=== PATIENT | female | born 1945 | race Caucasian/White ===

== ENCOUNTER → 2016-11-04 | Day surgery (SDC) | payer MEDICARE, BC | LOC: RAD 12:49 | PROVIDERS: ATTEND Orthopaedic Surgery | PROC: BP08ZZZ Plain Radiography of Right Shoulder (ICD-10-PCS; principal; 2016-11-04) | DX: M25.511 Pain in right shoulder (principal) | CPT/HCPCS: 73222; 73040; 77002; A9576 ==

== ENCOUNTER → 2016-11-25 | Outpatient (CLI) | payer MEDICARE, BC ==
[2016-11-25 13:29] LABS: ABSOLUTE EOSINOPHILS # (AUTO) 0.2 10^3/uL (0.0-0.6); ABSOLUTE LYMPHOCYTES (AUTO) 1.9 10^3/uL (0.5-4.7); ABSOLUTE MONOCYTES (AUTO) 0.5 10^3/uL (0.1-1.4); BASOPHILS % (AUTO) 0.9 % (0-2); EOSINOPHILS % (AUTO) 4.8 % (0-6); HEMATOCRIT 41.6 % (36.0-47.0); HEMOGLOBIN 13.6 g/dL (12.0-15.5); HGB HCT DIFFERENCE -0.8; LYMPHOCYTES % (AUTO) 41.1 % (13-45); MEAN CORPUSCULAR HEMOGLOBIN 26.6 pg (27.0-33.4); MEAN CORPUSCULAR HGB CONC 32.6 g/dL (32.0-36.0); MEAN CORPUSCULAR VOLUME 82 fl (80-97); MONOCYTES % (AUTO) 10.1 % (3-13); RED CELL DISTRIBUTION WIDTH 14.4 % (11.5-14.0); SEGMENTED NEUTROPHILS % (AUTO) 43.1 % (42-78); WHITE BLOOD COUNT 4.7 10^3/uL (4.0-10.5)
[2016-11-25 13:50] LABS: ALANINE AMINOTRANSFERASE 33 U/L (9-52); ALKALINE PHOSPHATASE 83 U/L (38-126); ANION GAP 9 (5-19); ASPARTATE AMINO TRANSFERASE 31 U/L (14-36); BILIRUBIN,TOTAL 0.7 mg/dL (0.2-1.3); BLOOD UREA NITROGEN 26 mg/dL (7-20); CALCIUM 10.5 mg/dL (8.4-10.2); CARBON DIOXIDE 29 mmol/L (22-30); CHLORIDE 106 mmol/L (98-107); GLUCOSE 93 mg/dL (75-110); POTASSIUM 4.9 mmol/L (3.6-5.0)
== END ==
LOC: OD 12:37
PROVIDERS: ATTEND Physician Assistant
DX: Z01.810 Encounter for preprocedural cardiovascular examination (principal); Z11.2 Encounter for screening for other bacterial diseases
CPT/HCPCS: 36415; 80053; 85025

== ENCOUNTER 2017-12-10 09:52 | Day surgery (SDC) | payer MEDICARE, BC ==
[~2017-12-10 09:52] MED LIST: KETOROLAC TROMETHAMINE 0.45% 4 DROP/0.4 ML DROPERETTE OS PRN
[2017-12-10] MEDS ORDERED: CHONDR SU A NA/HYALUR INTRAOC KIT (SURGICARE) ONE (10:00)
[2017-12-10] MEDS ORDERED: EPINEPHRINE INJ/PF 1 MG/1 ML AMPULE ONE (10:00)
[2017-12-10] MEDS ORDERED: LIDOCAINE 1% INJ-PF (10 MG/ML) 30 ML SDV ONE (10:00)
[2017-12-10] MEDS: TROPICAMIDE 1% OPH SOLN 3 ML OS PRN ×3 (10:26→10:48)
[2017-12-10] MEDS: CYCLOPENTOLATE 0.2%/PHENYLEPHRINE 1% OPH SOLN 2 ML OS PRN ×3 (10:26→10:48)
[2017-12-10] MEDS: BESIFLOXACIN HCL 0.6% OPH SUSP 5 ML BOTTLE OS PRN ×3 (10:27→11:30)
[2017-12-10] MEDS: TETRACAINE HCL 0.5% OPH SOLN 2 ML OS PRN ×3 (10:28→11:06)
[2017-12-10] MEDS ORDERED: MIDAZOLAM 2 MG/2 ML INJ ONE ×2 (10:59→11:00)
[2017-12-10] MEDS ORDERED: FENTANYL CITRATE INJ/PF 100 MCG/2 ML AMPUL ONE (11:00)
--- NOTE | 2017-12-10 22:04 | [facility] DISCHARGE SUMMARY E ---
[facility] Discharge Summary NAME: CHRISTIE AGUAYO AGE: 72Y ADMITTED: 12/10/2017 DISCHARGED: 12/10/2017 HOSPITAL COURSE: This is a 72-year-old female who underwent cataract extraction of the left eye. DIAGNOSIS: CATARACT, LEFT EYE. She underwent surgery because she was having difficulty with glare at night cause her difficulty for driving. DISCHARGE INSTRUCTIONS: She should be on a regular diet. No bending at her waist, no heavy lifting. She should use Besivance, Ilevro, and Durezol at 3 p.m. and 8 p.m. and sleep with a rigid shield. I will see her for her 1 day postoperative tomorrow. DICTATING PHYSICIAN: ISHMAEL LOPEZ M.D. [id number] Y#: [id number] ID: [id number] JOB#: [id number] ACCT: [id number] cc:ISHMAEL LOPEZ M.D. >
--- NOTE | 2017-12-10 22:04 | [facility] OPERATIVE REPORT E ---
[facility] Operative Report NAME: CHRISTIE AGUAYO AGE: 72Y DATE OF SURGERY: 12/10/2017 ROOM: PREOPERATIVE DIAGNOSIS: CATARACT, LEFT EYE. POSTOPERATIVE DIAGNOSIS: CATARACT, LEFT EYE. OPERATION: Cataract extraction with intraocular lens implant of the left eye. SURGEON: ISHMAEL LOPEZ M.D. ANESTHESIA: Topical. PROCEDURE: After obtaining appropriate consent, the patient's left eye was prepped and draped in sterile fashion as well as the surgeon in a sterile manner and cataract surgery was started. First a paracentesis blade was used to make a small side-port incision. Viscoelastic was used to inflate the anterior chamber. Next a 2.4 mm incision was made with the paracentesis blade. A continuous capsulorrhexis incision was made using a cystotome and Utrata forceps. Following this hydrodissection was carried out to make the lens fully loose and mobile and it was rotated 90 degrees. Following this, a poovii-nsm-lprqvcn technique was used to phacoemulsify the lens with a CDE of 8.10. The remaining cortex was removed with irrigation/aspiration. Provisc was instilled into the capsular bag to inflate the bag. A SN60WF, 17.0 diopter lens was placed. The remaining viscoelastic material was removed with irrigation/aspiration. Following this, a 10-0 nylon suture was used to close the incision and it was found to be watertight. Vigamox was instilled in the eye and a protective shield was placed over the eye. The patient returned to the postoperative recovery in stable condition. DICTATING PHYSICIAN: ISHMAEL LOPEZ M.D. [id number] [id number] PHY#: [id number] ID: [id number] JOB#: [id number] ACCT: [id number] cc:ISHMAEL LOPEZ M.D. >
== END 2017-12-10 12:24 | disposition home or self-care (01) ==
LOC: SC 09:52
PROVIDERS: ATTEND Internal Medicine
PROC: 08RK3JZ Replacement of Left Lens with Synthetic Substitute, Percutaneous Approach (ICD-10-PCS; principal; 2017-12-10 11:30)
DX: H25.812 Combined forms of age-related cataract, left eye (principal); I10 Essential (primary) hypertension; M32.9 Systemic lupus erythematosus, unspecified; Z87.891 Personal history of nicotine dependence; Z79.899 Other long term (current) drug therapy; Z79.82 Long term (current) use of aspirin
CPT/HCPCS: 66984; V2632; J2250; J3490 ×2; A9270; J0171; J3010; 142

== ENCOUNTER 2017-12-31 06:54 | Day surgery (SDC) | payer MEDICARE, BC ==
[~2017-12-31 06:54] MED LIST changes: +KETOROLAC TROMETHAMINE 0.45% 4 DROP/0.4 ML DROPERETTE OD PRN; -KETOROLAC TROMETHAMINE 0.45% 4 DROP/0.4 ML DROPERETTE OS PRN
[2017-12-31] MEDS ORDERED: KETOROLAC TROMETHAMINE 0.45% 4 DROP/0.4 ML DROPERETTE ONE (06:59)
[2017-12-31] MEDS ORDERED: TETRACAINE HCL 0.5% OPH SOLN 2 ML ONE (07:00)
[2017-12-31] MEDS: CYCLOPENTOLATE 0.2%/PHENYLEPHRINE 1% OPH SOLN 2 ML OD PRN ×3 (07:04→07:36)
[2017-12-31] MEDS: TROPICAMIDE 1% OPH SOLN 3 ML OD PRN ×3 (07:04→07:36)
[2017-12-31] MEDS: BESIFLOXACIN HCL 0.6% OPH SUSP 5 ML BOTTLE OD PRN ×3 (07:05→08:16)
[2017-12-31] MEDS: TETRACAINE HCL 0.5% OPH SOLN 2 ML OD PRN ×2 (07:06→07:41)
[2017-12-31] MEDS ORDERED: EPINEPHRINE INJ/PF 1 MG/1 ML AMPULE ONE (07:13)
[2017-12-31] MEDS ORDERED: CHONDR SU A NA/HYALUR INTRAOC KIT (SURGICARE) ONE (07:13)
[2017-12-31] MEDS ORDERED: LIDOCAINE 1% INJ-PF (10 MG/ML) 30 ML SDV ONE (07:13)
[2017-12-31] MEDS ORDERED: FENTANYL CITRATE INJ/PF 100 MCG/2 ML AMPUL ONE (07:21)
[2017-12-31] MEDS ORDERED: MIDAZOLAM 2 MG/2 ML INJ ONE (07:21)
[2017-12-31] MEDS ORDERED: TETRACAINE HCL 0.5% OPH SOLN 2 ML OD PRN (07:30)
[2017-12-31] MEDS ORDERED: KETOROLAC TROMETHAMINE 0.45% 4 DROP/0.4 ML DROPERETTE OD PRN (07:30)
[2017-12-31] MEDS ORDERED: CYCLOPENTOLATE 0.2%/PHENYLEPHRINE 1% OPH SOLN 2 ML OD PRN (07:30)
[2017-12-31] MEDS ORDERED: BESIFLOXACIN HCL 0.6% OPH SUSP 5 ML BOTTLE OD PRN (07:30)
[2017-12-31] MEDS ORDERED: TROPICAMIDE 1% OPH SOLN 3 ML OD PRN (07:30)
--- NOTE | 2017-12-31 19:15 | [facility] DISCHARGE SUMMARY E ---
[facility] Discharge Summary NAME: CHRISTIE AGUAYO AGE: 72Y ADMITTED: 12/31/2017 DISCHARGED: FINAL DIAGNOSIS: Cataract, right eye. HOSPITAL COURSE: This is a 72-year-old female who underwent cataract extraction of the right eye. She underwent surgery because she was having trouble seeing road signs and people's faces. She should be on a regular diet. No bending at her waist, no heavy lifting. She should use Besivance, Ilevro and Durezol at 3:00 p.m. and 8:00 p.m. Sleep with a rigid shield. I will see her for a 1-day postoperative tomorrow. DICTATING PHYSICIAN: ISHMAEL LOPEZ M.D. [id number] PHY#: [id number] ID: [id number] JOB#: [id number] ACCT: [id number] cc:ISHMAEL LOPEZ M.D. >
--- NOTE | 2017-12-31 19:15 | [facility] OPERATIVE REPORT E ---
[facility] Operative Report NAME: CHRISTIE AGUAYO AGE: 72Y DATE OF SURGERY: 12/31/2017 ROOM: PREOPERATIVE DIAGNOSIS: CATARACT, RIGHT EYE. POSTOPERATIVE DIAGNOSIS: CATARACT, RIGHT EYE. OPERATION: Cataract extraction with intraocular lens implant of the right eye. SURGEON: ISHMAEL LOPEZ M.D. ANESTHESIA: Topical. PROCEDURE: After obtaining appropriate consent, the patient's right eye was prepped and draped in sterile fashion as well as the surgeon in a sterile manner and cataract surgery was started. First a paracentesis blade was used to make a small side-port incision. Viscoelastic was used to inflate the anterior chamber. Next a 2.4 mm incision was made with the paracentesis blade. A continuous capsulorrhexis incision was made using a cystotome and Utrata forceps. Following this hydrodissection was carried out to make the lens fully loose and mobile and it was rotated 90 degrees. Following this, a fetqsc-qxy-mczcpbt technique was used to phacoemulsify the lens with a CDE of 6.45. The remaining cortex was removed with irrigation/aspiration. Provisc was instilled into the capsular bag to inflate the bag. A SN60WF, 16.0 diopter lens was placed. The remaining viscoelastic material was removed with irrigation/aspiration. Following this, a 10-0 nylon suture was used to close the incision and it was found to be watertight. Vigamox was instilled in the eye and a protective shield was placed over the eye. The patient returned to the postoperative recovery in stable condition. DICTATING PHYSICIAN: ISHMAEL LOPEZ M.D. [id number] PHY#: [id number] ID: [id number] JOB#: [id number] ACCT: [id number] cc:ISHMAEL LOPEZ M.D. >
== END 2017-12-31 09:04 | disposition home or self-care (01) ==
LOC: SC 06:54
PROVIDERS: ATTEND Internal Medicine
PROC: 08RJ3JZ Replacement of Right Lens with Synthetic Substitute, Percutaneous Approach (ICD-10-PCS; principal; 2017-12-31 08:00)
DX: H25.811 Combined forms of age-related cataract, right eye (principal); Z96.1 Presence of intraocular lens; I20.9 Angina pectoris, unspecified; I12.9 Hypertensive chronic kidney disease with stage 1 through stage 4 chronic kidney disease, or unspecified chronic kidney disease; N18.2 Chronic kidney disease, stage 2 (mild); Z87.891 Personal history of nicotine dependence; I25.2 Old myocardial infarction
CPT/HCPCS: 66984; V2632; J2250; J3490 ×2; A9270; J0171; J3010; 142

== ENCOUNTER 2018-04-01 20:43 | Emergency (ER) | payer MEDICARE, BC ==
[2018-04-01 21:01] VITALS: BP 133/52
[2018-04-01] MEDS ORDERED: ACETAMINOPHEN 325 MG TABLET PO ONE (22:48)
--- NOTE | 2018-04-01 22:49 | ER Document Report ---
ED Extremity Problem, Lower - General Chief Complaint: Toe Injury Stated Complaint: TOE PAIN Time Seen by Provider: 04/01/18 22:43 Mode of Arrival: Ambulatory Information source: Patient Notes: 72-year-old female presented ED for complaint of left great toe pain. She states she stubbed her toe at home. She states it was deformed looking and she tried to grab it and straighten it out at home. She states she had injured her fingers one time in the past and had not been able to get it straight so she decided to come into the emergency room. She states she did it about 730. Patient states she drove herself to the hospital because it only hurts really bad when she touches it. She states that he did not touch it it is only a 2/5 pain but when you touch it it is a 3/5 pain. She states the pain is aching and throbbing. TRAVEL OUTSIDE OF THE [place] IN LAST 30 DAYS: No - HPI Patient complains to provider of: Injury, Pain Location: Great Toe - Left Occurred: This evening Where: Home, Indoors Onset/Duration: Sudden Quality of pain: Achy, Throbbing Severity: Moderate Pain Level: 2 Context: Other - Stubbed her toe Recent injury: Yes Associated symptoms: Painful ambulation Exacerbated by: Movement, Walking, Other - Touching it Relieved by: Elevation, Ice, Rest - Related Data Allergies/Adverse Reactions: No Known Allergies Allergy (Unverified 12/30/15 19:25) Past Medical History - General Information source: Patient - Social History Smoking Status: Never Smoker Cigarette use (# per day): No Chew tobacco use (# tins/day): No Smoking Education Provided: No Frequency of alcohol use: None Drug Abuse: None Lives with: Alone Family History: Reviewed & Not Pertinent Patient has suicidal ideation: No Patient has homicidal ideation: No - Past Medical History Cardiac Medical History: Reports: Hx Heart Attack - MILD 2016, Hx Hypercholesterolemia, Hx Hypertension - MEDICATED Pulmonary Medical History: Reports: None EENT Medical History: Reports: None Neurological Medical History: Reports: None Endocrine Medical History: Reports: None Renal/ Medical History: Reports: Hx Renal Insufficiency Malignancy Medical History: Reports: None GI Medical History: Reports: None Musculoskeletal Medical History: Reports Hx Arthritis, Reports Hx Musculoskeletal Deformity, Reports Hx Musculoskeletal Trauma, Reports Other - lupus Skin Medical History: Reports None Psychiatric Medical History: Reports: None Traumatic Medical History: Reports: Hx Fractures - fingers, left great toe today Infectious Medical History: Denies: Hx Hepatitis Past Surgical History: Reports: Hx Coronary Stent - STENT X2 2016, Hx Oral Surgery, Hx Orthopedic Surgery - rotator cuff, orif of hip, Hx Tubal Ligation - Immunizations Immunizations up to date: Yes Review of Systems - Review of Systems Constitutional: No symptoms reported EENT: No symptoms reported Cardiovascular: No symptoms reported Respiratory: No symptoms reported Gastrointestinal: No symptoms reported Genitourinary: No symptoms reported Female Genitourinary: No symptoms reported Musculoskeletal: Other - Left great toe injury. She states that had deformity at home and she pulled it out straight. Skin: No symptoms reported Hematologic/Lymphatic: No symptoms reported Neurological/Psychological: No symptoms reported -: Yes All other systems reviewed and negative Physical Exam - Vital signs Vitals: Temp Pulse Resp BP Pulse Ox 98.8 F 75 16 133/52 H 96 04/01/18 20:59 04/01/18 20:59 04/01/18 20:59 04/01/18 20:59 04/01/18 20:59 Interpretation: Normal - General General appearance: Appears well, Alert - HEENT Head: Normocephalic, Atraumatic Eyes: Normal Pupils: PERRL - Respiratory Respiratory status: No respiratory distress Chest status: Nontender Breath sounds: Normal Chest palpation: Normal - Cardiovascular Rhythm: Regular Heart sounds: Normal auscultation Murmur: No - Abdominal Inspection: Normal Distension: No distension Bowel sounds: Normal Tenderness: Nontender Organomegaly: No organomegaly - Back Back: Normal, Nontender - Extremities General upper extremity: Normal inspection, Nontender, Normal color, Normal ROM , Normal temperature General lower extremity: Normal color, Normal ROM, Normal temperature, Normal weight bearing. No: Pedro's sign Foot: Tender - Left great toe, Ecchymosis - Left great toe, Edema - Left great toe, No evidence of FB - Neurological Neuro grossly intact: Yes Cognition: Normal Orientation: AAOx4 Pioneer Coma Scale Eye Opening: Spontaneous Pioneer Coma Scale Verbal: Oriented Pioneer Coma Scale Motor: Obeys Commands Suzette Coma Scale Total: 15 Speech: Normal Motor strength normal: LUE, RUE, LLE, RLE Sensory: Normal - Psychological Associated symptoms: Normal affect, Normal mood - Skin Skin Temperature: Warm Skin Moisture: Dry Skin Color: Normal Course - Re-evaluation Re-evalutation: 04/02/18 00:41 X-ray discussed with Dr. Keene she stated patient would need to wear close toe shoe at home and to follow-up with orthopedics tomorrow. She she recommended asking patient if she would need crutches or cane for walking at home. Patient states now she was very steady on her feet she was just concerned that did the patient need surgery tonight for this toe patient stated she had some closed toed shoes she can wear at home but she did not want to wear a postop shoe tonight she would rather wear her sandals home and then wear her tennis shoes when she gets up and moves around. She requested that she follow-up with Dr. Nails because she had seen him before for a shoulder injury and he had done surgery on her. She was discharged home with a [place] dispense pack for pain. Discussed with patient about the need to avoid ibuprofen Advil Motrin or Aleve as these all would affect her kidney insufficiency she has a history of. She also has a history of an SD with 2 coronary stents and is on aspirin. She states her tailer in has her on Plaquenil for her arthritis. Patient states she will call the orthopedic doctor in the morning. Elevation and ice discussed with the patient and patient verbalized understanding. - Vital Signs Vital signs: Temp Pulse Resp BP Pulse Ox 98.8 F 75 16 133/52 H 96 04/01/18 20:59 04/01/18 20:59 04/01/18 20:59 04/01/18 20:59 04/01/18 20:59 - Diagnostic Test Radiology reviewed: Image reviewed, Reports reviewed Discharge - Discharge Clinical Impression: Fracture of left great toe Qualifiers: Encounter type: initial encounter Fracture type: closed Phalanx: proximal Fracture alignment: displaced Qualified Code(s): S92.412A - Displaced fracture of proximal phalanx of left great toe, initial encounter for closed fracture Condition: Stable Disposition: HOME, SELF-CARE Additional Instructions: You have a slightly angulated fracture of the proximal phalanx of the left great toe this fracture goes into the joint. I have reviewed a picture of the fracture with you and explained each of the terms to you with the picture as I explained them to you. You need to follow-up with the orthopedic doctor by telephone in the morning to schedule a follow-up appointment as this is your great toe and helps you with your balance. You have requested that I have you follow-up with Dr. Nails because he has been your doctor in the past. I have given you his name and information. You have requested not to get a postop shoe but to wear your sandal home and then to put a closed toe shoe on at home until you follow-up with the orthopedics. ICE & ELEVATION: Apply ice packs frequently against the painful area. Many different schedules are recommended, such as "20 minutes on, 20 minutes off" or "one hour ice, two hours rest." If you need to work, you may need to go longer between ice treatments. You should plan to have the area ice packed AT LEAST one- fourth of the time. The ice should be applied over the wrap, tape, or splint, or over a layer of cloth -- not directly against the skin. Some ice bags have a built-in cloth and can be put directly on the skin. Your injured part should be elevated as much as possible over the next 48 hours. Try to keep the injury above the level of the heart. Avoid use of the injured area. Elevation and rest will decrease the swelling. USE OF [id number] IBUPROFEN: Ibuprofen (Advil, Nuprin, Medipren, Motrin IB) is a medication for fever and pain control. In addition, it has anti- inflammatory effects which may be beneficial, especially in the treatment of injuries. It's best to take ibuprofen with food. Persons with ulcer disease or allergy to aspirin should notify their physician of this before taking ibuprofen. Ibuprofen can be given every four to six hours, for a total of four doses daily. Age Pain or fever dose Antiinflammatory dose 6-8 yr 200 mg (1 tab) 200 mg (1 tab) 9-11 yr 200 mg (1 tab) 200-400 mg (1-2 tab) 11-14 yr 200-400 mg (1-2 tab) 400 mg (2 tab) 15-adult 400 mg (2 tab) 600 mg (3 tab) ORAL NARCOTIC MEDICATION: You have been given a [place] dispense pack for pain control. This medication is a narcotic. It's best taken with food, as nausea can result if taken on an empty stomach. Don't operate machinery or drive within six hours of taking this medication. Do not combine this medicine with alcohol, or with any medication which can cause sedation (such as cold tablets or sleeping pills) unless you get permission from the physician. Narcotics tend to cause constipation. If possible, drink plenty of fluids and eat a diet high in fiber and fruits. Please be aware that prescription narcotics also have the potential for abuse. People become addicted to these medications because of the general sense of wellbeing that they induce. This feeling along with a significant reduction in tension, anxiety, and aggression provides a stimulating seductive quality to these drugs. Once your pain is under control, we encourage you to discard your unused narcotics. FOLLOW-UP CARE: If you have been referred to a physician for follow-up care, call the physician s office for an appointment as you were instructed or within the next two days. If you experience worsening or a significant change in your symptoms, notify the physician immediately or return to the Emergency Department at any time for re-evaluation. Forms: Elevated Blood Pressure Referrals: KELLY ROJAS MD [Primary Care Provider] - Follow up as needed MARIJA NAILS DO [ACTIVE STAFF] - Follow up tomorrow
--- NOTE | 2018-04-01 23:51 | RADIOLOGY REPORT (SQ) ---
EXAM DESCRIPTION: XR FOOT 3 OR MORE VIEWS COMPLETED DATE/TME: 04/01/2018 22:48 CLINICAL HISTORY: 72 years, Female, stubbed great toe was deformed at home COMPARISON: None. NUMBER OF VIEWS: 3.0 TECHNIQUE: Lateral, oblique and frontal views of the left foot were done LIMITATIONS: None. FINDINGS: There is presence of an age indeterminate slightly angulated fracture in the mid to distal diaphysis of the proximal phalanx of the left great toe with intra-articular extension of the fracture line at the level of the interphalangeal joint of the left great toe. The remainder of the bones of the left foot are intact IMPRESSION: There is presence of an age indeterminate slightly angulated fracture in the mid to distal diaphysis of the proximal phalanx of the left great toe with intra-articular extension of the fracture line at the level of the interphalangeal joint of the left great toe. 2011 [employer]- All Rights Reserved
[2018-04-02] MEDS ORDERED: HYDROCODONE/ACETAMINOPHEN 5-325 MG (6 TAB/ER DISP) PO PRN (00:32)
== END 2018-04-02 00:52 | disposition home or self-care (01) ==
LOC: ER 20:43
DX: S92.412A Displaced fracture of proximal phalanx of left great toe, initial encounter for closed fracture (principal); W22.8XXA Striking against or struck by other objects, initial encounter; Y92.009 Unspecified place in unspecified non-institutional (private) residence as the place of occurrence of the external cause; I10 Essential (primary) hypertension; I25.2 Old myocardial infarction; Z79.82 Long term (current) use of aspirin; Z95.5 Presence of coronary angioplasty implant and graft
CPT/HCPCS: 99283; 73630; A9270 ×2